=== PATIENT | female | born 1945 | race Caucasian/White ===

== ENCOUNTER → 2017-11-14 | Outpatient (CLI) | payer OTHER | LOC: HYPER 10-26 14:18 | DX: L89.893 Pressure ulcer of other site, stage 3 (principal); G60.8 Other hereditary and idiopathic neuropathies; I10 Essential (primary) hypertension; M19.90 Unspecified osteoarthritis, unspecified site; Z98.49 Cataract extraction status, unspecified eye; Z87.891 Personal history of nicotine dependence; Z72.89 Other problems related to lifestyle ==

== ENCOUNTER → 2017-12-05 | Outpatient (CLI) | payer OTHER | LOC: HYPER 06:40 | DX: L89.893 Pressure ulcer of other site, stage 3 (principal); I10 Essential (primary) hypertension; G60.8 Other hereditary and idiopathic neuropathies; M19.90 Unspecified osteoarthritis, unspecified site; Z87.891 Personal history of nicotine dependence; Z72.89 Other problems related to lifestyle ==

== ENCOUNTER → 2018-01-02 | Outpatient (CLI) | payer OTHER | LOC: HYPER 12-26 06:58 | DX: L89.893 Pressure ulcer of other site, stage 3 (principal); I10 Essential (primary) hypertension; M19.90 Unspecified osteoarthritis, unspecified site; G60.8 Other hereditary and idiopathic neuropathies; Z87.891 Personal history of nicotine dependence; Z72.89 Other problems related to lifestyle; L84 Corns and callosities ==

== ENCOUNTER → 2018-01-23 | Outpatient (CLI) | payer OTHER | LOC: HYPER 06:59 | DX: L89.893 Pressure ulcer of other site, stage 3 (principal); I10 Essential (primary) hypertension; L84 Corns and callosities; G60.8 Other hereditary and idiopathic neuropathies; M19.90 Unspecified osteoarthritis, unspecified site; Z87.891 Personal history of nicotine dependence ==

== ENCOUNTER → 2018-03-13 | Outpatient (CLI) | payer OTHER | LOC: HYPER 07:00 | DX: S91.301D Unspecified open wound, right foot, subsequent encounter (principal); L89.893 Pressure ulcer of other site, stage 3; I10 Essential (primary) hypertension; G60.8 Other hereditary and idiopathic neuropathies; M19.90 Unspecified osteoarthritis, unspecified site; Z87.891 Personal history of nicotine dependence; X58.XXXD Exposure to other specified factors, subsequent encounter ==

== ENCOUNTER → 2021-03-18 | Outpatient (CLI) | payer OTHER | LOC: HYPER 08:12 | PROVIDERS: ATTEND Emergency Medicine | DX: L97.522 Non-pressure chronic ulcer of other part of left foot with fat layer exposed (principal); L02.416 Cutaneous abscess of left lower limb; G60.8 Other hereditary and idiopathic neuropathies; E78.5 Hyperlipidemia, unspecified; I10 Essential (primary) hypertension; Q05.9 Spina bifida, unspecified; M86.8X8 Other osteomyelitis, other site; M19.90 Unspecified osteoarthritis, unspecified site; M14.672 Charcot's joint, left ankle and foot; Z89.421 Acquired absence of other right toe(s); Z87.891 Personal history of nicotine dependence ==

== ENCOUNTER → 2021-03-31 | Outpatient (CLI) | payer OTHER | LOC: SJCVCIMAG 06:43 | PROVIDERS: ATTEND Emergency Medicine | DX: I70.202 Unspecified atherosclerosis of native arteries of extremities, left leg (principal); M79.661 Pain in right lower leg; M79.662 Pain in left lower leg ==

== ENCOUNTER → 2021-04-01 | Outpatient (CLI) | payer OTHER | LOC: HYPER 09:22 | PROVIDERS: ATTEND Emergency Medicine | DX: L97.522 Non-pressure chronic ulcer of other part of left foot with fat layer exposed (principal); L02.416 Cutaneous abscess of left lower limb; L84 Corns and callosities; G60.8 Other hereditary and idiopathic neuropathies; E78.5 Hyperlipidemia, unspecified; I10 Essential (primary) hypertension; Q05.9 Spina bifida, unspecified; M86.8X8 Other osteomyelitis, other site; M19.90 Unspecified osteoarthritis, unspecified site; M14.672 Charcot's joint, left ankle and foot; Z89.421 Acquired absence of other right toe(s); Z87.891 Personal history of nicotine dependence; Z98.49 Cataract extraction status, unspecified eye; Z93.3 Colostomy status; Z96.643 Presence of artificial hip joint, bilateral ==

== ENCOUNTER → 2021-04-15 | Outpatient (CLI) | payer OTHER | LOC: HYPER 09:54 | PROVIDERS: ATTEND Emergency Medicine Emergency Medical Services | DX: L97.526 Non-pressure chronic ulcer of other part of left foot with bone involvement without evidence of necrosis (principal); L02.416 Cutaneous abscess of left lower limb; L84 Corns and callosities; G60.8 Other hereditary and idiopathic neuropathies; E78.5 Hyperlipidemia, unspecified; I10 Essential (primary) hypertension; Q05.9 Spina bifida, unspecified; M86.8X8 Other osteomyelitis, other site; M19.90 Unspecified osteoarthritis, unspecified site; M14.672 Charcot's joint, left ankle and foot; Z89.421 Acquired absence of other right toe(s); Z87.891 Personal history of nicotine dependence; Z98.49 Cataract extraction status, unspecified eye; Z93.3 Colostomy status; Z96.643 Presence of artificial hip joint, bilateral ==

== ENCOUNTER → 2021-04-29 | Outpatient (CLI) | payer OTHER | LOC: HYPER 08:47 | PROVIDERS: ATTEND Emergency Medicine | DX: L97.526 Non-pressure chronic ulcer of other part of left foot with bone involvement without evidence of necrosis (principal); L02.416 Cutaneous abscess of left lower limb; L84 Corns and callosities; G60.8 Other hereditary and idiopathic neuropathies; E78.5 Hyperlipidemia, unspecified; I10 Essential (primary) hypertension; Q05.9 Spina bifida, unspecified; M86.8X8 Other osteomyelitis, other site; M19.90 Unspecified osteoarthritis, unspecified site; M14.672 Charcot's joint, left ankle and foot; Z89.421 Acquired absence of other right toe(s); Z87.891 Personal history of nicotine dependence; Z98.49 Cataract extraction status, unspecified eye; Z93.3 Colostomy status; Z96.643 Presence of artificial hip joint, bilateral ==

== ENCOUNTER 2021-05-15 13:04 | Inpatient (IN) | payer OTHER ==
[~2021-05-15] VITALS: Ht 147.3 cm; Wt 49.0 kg
[2021-05-15 13:08] VITALS: BP 143/77
[2021-05-15 14:18] LABS: HEMATOCRIT 29.1 % (37.0-47.0); HEMOGLOBIN 10.1 gm/dL (12.0-15.0); MCH 31.6 pg (26.0-34.0); MCHC 34.9 g/dL (28.0-37.0); MCV 90.4 fL (80.0-100.0); RBC 3.21 mil/uL (4.20-5.00); WBC 9.1 thou/uL (4.0-11.0)
[2021-05-15 14:27] LABS: CALCIUM 9.5 mg/dL (8.5-10.1); CREATININE 1.1 mg/dL (0.6-1.0); POTASSIUM 3.5 mmol/L (3.5-5.1)
[2021-05-15 14:33] LABS: ALBUMIN 2.8 g/dL (3.4-5.0); TOTAL BILIRUBIN 0.7 mg/dL (0.2-1.0); TOTAL PROTEIN 8.1 g/dL (6.4-8.2)
[2021-05-15] MEDS ORDERED: TRIAMTERENE/HCT1 CA1 PO (15:09)
[2021-05-15] MEDS ORDERED: NORVASC5 MG PO (15:10)
[2021-05-15] MEDS ORDERED: FENOFIBRATE160 MG PO (15:10)
[2021-05-15 16:33] VITALS: BP 144/74
[2021-05-15 16:48] VITALS: BP 156/75
--- NOTE | 2021-05-15 18:25 | NUR ---
ASSUMED CARE OF PT AT 1715 THIS AFTERNOON FROM ER. PT IS A/OX4, SEVERE PAIN IN HE LEF FOOT HICH HAD SUGERY PEFORMD IN FEBRUARY AND HAS NO HEALED. PT WAS DX WITH OSTEOMALYTIS AND WAS XFERRED FOR WOUND CARE [place].
[2021-05-15 20:05] VITALS: BP 145/93
[2021-05-16 03:50] VITALS: BP 132/74
--- NOTE | 2021-05-16 05:33 | NUR ---
PT LYING IN BED. LORTAB PROVIDING PAIN RELIEF. PURE WICK IN PLACE. RESTING COMFORTABLY. NO NEEDS VOICED. CALL LIGHT WITHIN REACH. FREQUENT OBSERVATION.
[2021-05-16 05:42] LABS: HEMOGLOBIN 8.9 gm/dL (12.0-15.0); MCH 31.3 pg (26.0-34.0); MCHC 34.4 g/dL (28.0-37.0); MCV 90.9 fL (80.0-100.0); RBC 2.86 mil/uL (4.20-5.00); WBC 6.2 thou/uL (4.0-11.0)
[2021-05-16 05:54] LABS: CALCIUM 9.3 mg/dL (8.5-10.1); CREATININE 1.2 mg/dL (0.6-1.0); POTASSIUM 3.3 mmol/L (3.5-5.1)
[2021-05-16 08:43] VITALS: BP 138/81
--- NOTE | 2021-05-16 09:43 | HC ---
[facility] [place] [address] CONSULTATION Name: RUIZ SILVA Room #: 439- ADM IN M.R.#: [id number] Admission: 05/15/21 Attend Phys: Dixon Orellana MD Discharge: Date of : 43 Report #: [id number] THIS REPORT FOR: cc: Haley Kumar,Monster Parada MD ~ DATE OF SERVICE: 05/16/2021 INFECTIOUS DISEASE CONSULTATION ATTENDING PHYSICIAN: Dr. Orellana. REASON FOR EVALUATION: Osteomyelitis, left foot. HISTORY OF PRESENT ILLNESS: Chart reviewed. The patient examined. A 75-year-old woman with known history of spina bifida actually has a left foot deformity. As a result, she has ongoing issues with pain and discomfort associated with her distal lower extremity. She notes in December or January of this year developed a bullous type lesion over the fifth metatarsal site. Ultimately that was debrided, records are not available, but she underwent a prolonged course of parenteral therapy. She believes it was two different organisms including E. coli, notes she was treated with cefepime. She has completed roughly a month ago, she developed onset of ankle type pain made it difficult to ambulate due to the severity of the nature of the symptoms, she was evaluated again. Plain films of the ankle showed diffuse osteopenia without evidence of fracture or dislocation, foot; however, did show question of osteomyelitis with bone destruction involving the proximal fifth metatarsal. CRP was markedly elevated at 328.3. Sed rate of 121. Blood cultures collected at the time of sterile thus far not clear that she has had significant fevers. She has had some diminished appetite and p.o. intake. No pulmonary or gastrointestinal related complaints. ALLERGIES: LISTED TO MORPHINE, TRAMADOL, DILAUDID. PAST MEDICAL HISTORY: Includes spina bifida, hypertension. SOCIAL HISTORY: Former smoker. Regular ethanol use. No illicit drug use. FAMILY HISTORY: Noncontributory. REVIEW OF SYSTEMS: Otherwise, unremarkable. PHYSICAL EXAMINATION: GENERAL: Alert, cooperative, appropriate. She is lucid, somewhat chronically ill appearing and undernourished, mild to moderate distress. VITAL SIGNS: Temperature max 100.6, more recently 99.3, pulse 81, respirations [address] [address] CONSULTATION Name: RUIZ SILVA Room #: 9[facility] IN .R.#: [id number] Admission: 05/15/21 Attend Phys: Dixon Orellana MD Discharge: Date of : 43 Report #: [id number], blood pressure 132/74. SKIN: Warm, dry, no rashes. HEENT: Normocephalic. Extraocular muscles intact. NECK: Supple. LUNGS: Diminished. HEART: Somewhat tachycardic, irregular. ABDOMEN: Soft, nontender. EXTREMITIES: Left lower extremity dressing in place. There is some inversion of the ankle and is quite exquisitely tender. There is not a significant amount of surface inflammation noted over the fifth metatarsal. There is a dressing in place. GENITOURINARY AND RECTAL: Deferred. LABORATORY DATA: Blood cultures sterile thus far. Electrolytes: Sodium 136, potassium 3.3, chloride 100, bicarbonate is 26, anion gap of 10, BUN and creatinine 20 and 1.2. Estimated GFR of 44. CBC: White count 6.2, H and H 8.9 and 26.0, platelets of 255. Sed rate of 121. Lactic acid 1.1. CRP of 328.3. Liver functions otherwise unremarkable. Albumin 2.8, total protein of 8.1. ASSESSMENT AND PLAN: Left distal lower extremity inflammatory process, localizing of her signs and symptoms appear to be the ankle as opposed to the foot, although the x-ray changes are noted. She has had previous surgery there and apparently treatments as recently as a month ago and was told that there is no evidence of osteomyelitis, probably not unreasonable to repeat imaging studies. We will check to exclude other possibilities such as more specifically arthritis, gout. We will continue empiric therapy in combination with cefepime and vancomycin. Await further recommendations. Continue wound care as prescribed. <ELECTRONICALLY SIGNED> By: Monster Upton MD 05/16/21 0943 [id number] 0801 Monster Upton MD /nt
--- NOTE | 2021-05-16 14:42 | NUR ---
ASSUMED PT CARE THIS AM. PT IS ALERT & ORIENTED X4. PT HAS IV SITE ON L FA. PT IS ON ROOM AIR. PT C/O OF PAIN BUT REFUSED TO TAKE HYDROCODONE. OFFERED FENTANYL AND TYLENOL BUT PT STATED THAT WILL PROBABLY TAKE IT LATER TONIGHT. INFORMED DR ABOUT HOME MEDICATION. GIVEN HOME MEDICATION THIS AM PER PT REQUEST AND DR ORDERED. PT USES BEDPAN. NO C/O OF NAUSEA AND VOMITING DURING THE SHIFT. PT TOLERATED DIET WELL. PT ON THE BED SLEEPING, BED ON THE LOWEST POSITION, SIDE RAILS UP, CALL LIGHT WITHIN REACH. WILL CONTINUE TO MONITOR PT. FOLLOW POC.
[2021-05-16 17:08] VITALS: BP 152/81
[2021-05-16 19:00] VITALS: BP 150/75
--- NOTE | 2021-05-17 05:33 | NUR ---
PT LYING IN BED. VOIDING PER BEDPAN. DC'D HYDROCODONE AND OBTAINED ORDER FOR IBUPROFEN FOR PAIN CONTROL. WILL MONITOR. RESTING COMFORTABLY. NO NEEDS VOICED. CALL LIGHT WITHIN REACH. FREQUENT OBSERVATION.
[2021-05-17 05:44] VITALS: BP 136/79
--- NOTE | 2021-05-17 07:49 | EKG ---
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 05/17/21 0749 1530 1530 Ross Foster MD, FACC /EPI
[2021-05-17 08:24] VITALS: BP 133/78
--- NOTE | 2021-05-17 11:14 | NUR ---
Received awake on bed. Due medications given as prescribed. Able to swallow meds w/o difficulty. On room air. Vital signs stable. On MS, not on telemetry, no complains and signs of chest pain, crushing sensation and heaviness. Assisted in ADLs. On regular diet- tolerating well; no nausea, no vomiting and no abdominal pain noted. Continent of bowel and bladder, using bedpan for now due to pain on her foot. With SL at L FA. With wound at L foot- dressing C/D/I. Steristrip at R forehead. Ongoing PT/OT evaluation. Complained of pain, due PRN pain meds given as prescribed. Advised pt to keep foot elevated. To continue monitoring patient.
--- NOTE | 2021-05-17 14:59 | NUR ---
ASSESSMENT: CM REVIEWED CHART AND SPOKE WITH PATIENT AT THE BEDSIDE. PT IS ALERT AND ORIENTED X4. PT REPORTS THAT SHE LIVES IN A HOUSE ALONE. PT HAS ABOUT 2 STEPS TO ENTER THE HOME WITH A HANDRAIL. PT REPORTS ONCE INSIDE SHE HAS NO STEPS TO USE. PT STATES SHE NORMALLY USES A QUAD CANE FOR AMBULATION AND DOES HAVE A WALKER IF NEEDED. PT IS CURRENTLY IN SERVICES WITH [facility]. LIASON FROM [facility] IS AWARE AND FOLLOWING PATIENT. PT WAS ADMITTED DUE TO CONCERNS FOR OSTEO ANKLE AND FOOT AND IS CURRENTLY ON IV ANBX. PT REPORTS SHE HAS BEEN ON IV ANBX IN THE PAST AT HOME. PT REPORTS SHE HAS NO FAMILY NEAR AND NORMALLY TAKES CARE OF HER SELF INDEPENDENTLY AND HAS GROCERIES DELIVERED. CM WILL CONTINUE TO FOLLOW TO ASSIST NEEDED AND AWAIT FURTHER INPUT FROM ID. CM WILL CONTINUE TO FOLLOW.
[2021-05-17 15:20] VITALS: BP 129/84
[2021-05-17 20:40] VITALS: BP 129/78
[2021-05-18] VITALS (8 sets, daily range): BP systolic 116–155; BP diastolic 65–83
--- NOTE | 2021-05-18 00:49 | NUR ---
ASSUMED PT CARE AT 1900.PT C/O PAIN TO HER L FOOT,MANAGED WITH MED.DRSG TO HER L FOOT C/D/I.PT NPO AT THIS TIME FOR A POSSIBLE SX IN THE AM.PT UP WITH ASSIST/GB AND WALKER TO THE BSC.NO BM NOTED SO FAR.FALL PRECAUTIONS IN PLACE.CALL LIGHT WITHIN REACH.
--- NOTE | 2021-05-18 08:44 | HC ---
[facility] [place] [address] CONSULTATION Name: RUIZ SILVA Room #: 439-P ADM IN M.R.#: [id number] Admission: 05/15/21 Attend Phys: Dixon Orellana MD Discharge: Date of : 43 Report #: [id number] THIS REPORT FOR: cc: Haley Kumar Diane C. DO [place], Allen B. MD ~ DATE OF SERVICE: 05/16/2021 WOUND CARE CONSULTATION NOTE REASON FOR CONSULTATION: Chronic nonhealing wound of left foot with increased pain and redness, admitted for IV antibiotics from the emergency room. HISTORY OF PRESENT ILLNESS: The patient is a 75-year-old woman who had undergone left foot surgery by her press operator meat in February. She has been seen in followup by Dr. Danie Mendoza at healing and wound care. The patient did call the answering service for healing and wound care yesterday with increased pain, swelling and tenderness of the left foot, which she was finding intolerable. The patient presented herself to the emergency room at [facility], was admitted for IV antibiotics. She is reporting some improvement with IV antibiotics with less pain. She has been afebrile. Plain x-ray of the foot on the left has shown findings suggestive of osteomyelitis and bone destruction involving the proximal fifth metatarsal. She is currently receiving intravenous vancomycin and cefepime. PAST MEDICAL HISTORY: Spina bifida, hypertension. PAST SURGICAL HISTORY: Left foot surgery 02/2021. REVIEW OF SYSTEMS: Left foot pain. PHYSICAL EXAMINATION: GENERAL: Shows a chronically ill-appearing 75-year-old woman, alert, pleasant, conversant. Mucous membranes are moist. NECK: Supple. ABDOMEN: Soft. EXTREMITIES: Lower extremity exam shows deformity of the left foot. There is a chronic open wound of the left lateral mid foot with chronic granulation tissue present. Wound is oval, measuring approximately 3.5 x 2 cm. Drainage is minimal. No surrounding redness. Somewhat tender to touch. IMPRESSION: 1. Spina bifida with foot deformities. 2. Immobility. 3. Chronic nonhealing surgical wound of left foot. 4. Cellulitis of left foot with chronic nonhealing wound. [facility] [address] [place] [address] CONSULTATION Name: RUIZ SILVA Room #: 439-P [facility] IN [facility].#: [id number] Admission: 05/15/21 Attend Phys: Dixon Orellana MD Discharge: Date of : 43 Report #: [id number] 5. Plain x-ray of the foot, suggesting osteomyelitis of the proximal 5th metatarsal. PLAN: Border foam Kerlix dressing. Continue IV antibiotics. Consider podiatry or surgery consult. Consider MRI. Dr. Mendoza knows the patient well. Wound care team will follow. <ELECTRONICALLY SIGNED> By: Bang Solis MD 05/18/21 0844 1152 Myrna Solis MD /annie
[2021-05-18 09:39] LABS: CALCIUM 9.3 mg/dL (8.5-10.1); POTASSIUM 3.9 mmol/L (3.5-5.1)
--- NOTE | 2021-05-18 10:55 | NUR ---
Pt has poor/limited nutrient intake at home, recommend start MVI
--- NOTE | 2021-05-18 14:58 | NUR ---
ON-GOING ASSESSMENT: CM REVIEWED CHART AND SPOKE WITH ATTENDING. PT IS HAVING DEBRIDEMENT TODAY. PT WILL NEED PROLONGED IX NABX THERAPY AND NEED PICC PLACED PRIOR TO DISCHARGE. AWAITING FINAL RECS FOR ANBX CULTURES WILL BE OBTAINED TODAY. CM ATTEMPTED TO MEET WITH PATIENT AT THE BEDSIDE TO FIND PREFERENCE OF INFUSION COMPANY BUT SHE IS CURRENTLY OUT OF THE ROOM FOR PROCEDURE. CM WILL CONTINUE TO FOLLOW. PT DID DISCUSS POSSIBILITY OF HOME INFUSION YESTERDAY EVENING WITH PATIENT AND SHE REPORTS HAVING IT IN THE PAST AND FEELS SHE WOULD BE ABLE TO DO IT HERSELF AGAIN AT THE TIME OF DISCHARGE. CATRINA ARITA CONTINUES TO FOLLOW PT AND AWARE OF LIKELY NEED FOR IV ANBX AT DISCHARGE. CM WILL CONTINUE TO FOLLOW.
--- NOTE | 2021-05-18 16:02 | NUR ---
Assessed pt at 7:00 am. Alert and orient x4. Pt is npo for surgery this afternoon. IV in left FA. Gets up with assist to bedside commode. Having debridement of left heel wound and bone deduction. VSS went down to surgery at 1400. 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 Fall precautions in place. Call light within reach.
[2021-05-18 16:06] LABS: GLOBULIN TOTAL 3.6 g/dL (2.2-3.9); M-SPIKE Not Observed g/dL (Not Observed)
--- NOTE | 2021-05-19 01:54 | NUR ---
ASSUMED T CARE AT 1900.PT C/O PAIN TO HER L FOOT,MANAGED WITH MED.DRSG TO HER L FOOT C/D/I.PT SITKA.NEIGHBOR BROUGHT BATTERIES TO HER HEARING AID,GAVE IT TO PT.PT ABLE TO MAKE HER NEEDS KNOWN.CALL LIGHT WITHIN REACH.
[2021-05-19 04:54] VITALS: BP 151/70
[2021-05-19 08:59] VITALS: BP 139/85
--- NOTE | 2021-05-19 14:12 | NUR ---
on-going assessment: CM REVIEWED CHART AND SPOKE WITH ATTENDING. CM SPOKE WITH PHYSICAL THERAPY WHO REPORTS THEY ARE NOW RECOMMENDING SNF FOR PATIENT SHE IS NWB LLE AND WILL HAVE A HARD TIME MANAGING THIS AT HOME WITH NO ASSISTANCE. CM MET WITH PATIENT THIS AM TO DISCUSS AND SHE IS RELUCTANT DUE TO HAVING PETS AT HOME BUT REPORTS SHE WILL ATTEMPT TO MAKE ARRANGEMENTS FOR HER BIRDS WITH HER VET, HER NEIGHBORS CAN FEED HER CATS AND THEY CAN TAKE CARE OF THEMSELVES, BUT SHE WILL NEED ASSISTANCE WITH HER DOG OR SHE WILL NOT AGREE TO GO. CM REACHED OUT TO JOSÉ ANTONIO SANDOVAL AT [employer] THEY HAVE AN EMERGENT FOSTERING PROGRAM FOR PATIENTS IN HOSPITAL/SNF SETTINGS. JAIME STATING THEY ARE PRETTY FULL RIGHT NOW BUT WILL HAVE PATIENT APPLY AND SEE IF THEY CAN WORK IT IN. CM WILL ATTEMPT TO GET PATIENT TO APPLY ONLINE THIS IS THE ONLY WAY THE APPLICATION CAN BE SUBMITTED. CM DISCUSSED SNF OPTIONS WITH PATIENT AND SHE REPORTS BEING TO [facility] IN THE PAST AND DOES NOT WANT TO RETURN. PT REPORTS SHE WOULD BE INTERSTED IN SEEING IF [facility] CAN ACCEPT SAME WOUND CARE TEAM GOES THERE. CM FAXED REFERRAL AND NOTIFIED [facility] IN ADMISSIONS.
--- NOTE | 2021-05-19 15:10 | NUR ---
Received awake on bed. Due medications given as prescribed, able to swallow meds w/o difficulty. On room air. Vital signs stable. On MS, not on telemetry; no complains and signs of chest pain, crushing sensation and heaviness. Assisted in ADLs. Continent of bowel and bladder, using bedpan at times due to non wt bearing status. With SL at L FA- on IV antibiotics. S/P I&D of L foot 05/18, dressing C/D/I. Pt informed and aware re: non wt bearing status. Falls bundle in place. Able to turn self in bed. Complained of pain, due PRN pain meds given as prescribed- Dr Orellana informed that pt requesting to have low dose gabapentin and PO pain meds- a/w orders. Pt seen and examined by wound team today- dressing changed. Seen and examined by ortho- ok to d/c from their standpoint; a/w PT/OT recommendations re: placement- CM aware. Pt complaining of sore throat- Dr Orellana informed- a/w prescription order. To continue monitoring patient.
[2021-05-19 16:20] VITALS: BP 128/66
[2021-05-19 19:12] VITALS: BP 150/81
--- NOTE | 2021-05-20 03:10 | NUR ---
ASSUMED CARE OF PT AT 1900. PT IS A/O X4 WITH SOME FORGETFULLNESS. VSS AFEBRILE. C/O NEEDING NERVE PAIN MEDICATION AND HAS STATED THAT SHE IS GOING TO TALK TO THE PHYSCIAN AGAIN ABOUT THIS IN THE AM. C/O PAIN TO LEFT FOOT. PRN PAIN MEDICATION GIVEN DIRECTED. DRSG TO LEFT FOOT IS C/D/I. PT IS PLEASANT AND COOPERATIVE WITH CARES. VOIDS PER BEDPAN. NO BM THIS SHIFT. MEDICATIONS GIVEN PER MAR WHOLE WITH WATER. LEFT FOOT ELEVATED AND HEEL FLOATING. FALL PRECAUTIONS IN PLACE, CALL LIGHT IS WITHIN REACH. WILL CONTINUE TO MONITOR.
[2021-05-20 04:46] VITALS: BP 127/69
[2021-05-20 07:43] VITALS: BP 142/66
--- NOTE | 2021-05-20 09:25 | NUR ---
on-going assessment: CM REVIEWED CHART AND SPOKE WITH ATTENDING. ID IS CONTINUING TO FOLLOW AND AWAITING FINAL RECS AT THIS TIME. PT IS TO HAVE PICC LINE PLACED TODAY. PPT MET WITH LIASON FROM [facility] YESTERDAY BUT REPORTS SHE WANTS TO MEET WITH THE LIASON FROM [facility] BEFORE MAKING A FINAL DECISION. CM NOTIFIED PT THAT ONCE DECISION IS MADE THE FACILITY NEEDS TO SUBMIT FOR AUTH. PT STATES SHE UNDERSTANDS. CM SPOKE WITH LIASON FROM [facility] WHO REPORTS SHE CAN COME MEET WITH PT CM REQUESTED SALVADOR AND SHE REPORTS SHE CAN BE HERE AFTER 1200. CM UPDATED PATIENT. 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 CM WILL AWAIT TO SPEAK WITH PT AFTER MEETING WITH LIASON FROM [facility].
--- NOTE | 2021-05-20 13:11 | NUR ---
A #4F SINGLE LUMEN POWER PICC WAS PLACED PER HOSPITAL POLICY. THE LINE WAS TRIMMED TO 39CM AND ADVANCED WITHTOUT DICCICULTY. THE LINE WAS CONFIRMED WITH 3CG AT 2CM EXTERNAL. THE LINE WAS SECURED AND RELEASED FOR USE
--- NOTE | 2021-05-20 15:16 | NUR ---
ON-GOING ASSESSMENT: CM REVIEWED CHART AND MET WITH PATIENT AGAIN THIS AFTERNOON. PT REPORTS AFTER TALKING WITH LI[facility]ON FROM [facility] PT WANTS TO PURSUE WITH GOING TO [facility]. CM NOTIFIED [facility] TO PLEASE SUBMIT FOR INSURANCE AUTH. PT HAD PICC LINE PLACED TODAY. 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 AWAITING FINAL RECS ON ANBX. CM FAXED UPDATED CLINICAL TO [facility].
[2021-05-20 16:23] VITALS: BP 116/65
--- NOTE | 2021-05-20 18:00 | NUR ---
PT ASSESSED AT START OF SHIFT. STAYING ON BEDREST AFTER FOOT SURGERY. SURGICAL DSNG INTACT W/ LATRICE WRAP. DR. ZAMORANO IN THIS AFTERNOON AND LEFT DSNG IN PLACE. PICC LINE PLACED PER IV TEAM. PT TO DISCHARGE TOMORROW TO [facility]. PAIN WELL MANAGED W/ PERCOCET.
--- NOTE | 2021-05-20 18:07 | PATH ---
[facility] [address] [place] [address] PATHOLOGY RPT PROCEDURE Name: HENNA ECHOLS Room #: 439-P ADM IN M.R.#: [id number] Admission: 05/15/21 Date of : 43 Discharge: Report #: [id number] Path Case #: [id number] [facility] Accession Number: [id number] . 01 Material submitted: . foot - 5TH METATARSAL LEFT FOOT. Modifiers: left, fifth . 01 Clinical history: . INCISION AND DRAINAGE EXTREMITH WITH L FOOT OSTEOMYELITIS . 02 Diagnosis: Bone, foot, fifth metatarsal left foot, incision and drainage: - Reactive bone associated with marked acute inflammation, consistent with acute osteomyelitis. . (IUV:mml; 05/20/2021) QLM 05/20/2021 1550 Local . 02 Electronically signed: . Kelle Metz MD, Pathologist NPI- [id number] . 01 Gross description: . The specimen is received in formalin, labeled "Henna Echols and fifth metatarsal left foot". It consists of a shepard irregular bone and soft tissue resection measuring 3.8 x 1.7 x 1.5 cm. Sectioning reveals shepard-yellow spongy bone. A outbound call center representative section is submitted in A1 following decalcification. (MRF; 05/19/2021) MFE/MFE 05/19/2021 1945 Local . 02 Pathologist provided ICD-10: M86.172 . 02 CPT . 129924, 268983 Specimen Comment: A courtesy copy of this report has been sent to [phone], [phone] Specimen Comment: [phone], Specimen Comment: Report sent to ,DR GARCIA / DR NGUYEN Performed at: [address] [id number] MD Joe Cadena MD Phone: [phone] Performed at: 02 [facility] [address] [place] [address] PATHOLOGY RPT PROCEDURE Name: HENNA ECHOLS Room #: 439-P ADM IN M.R.#: [id number] Admission: 05/15/21 Date of : 43 Discharge: Report #: [id number] Path Case #: [id number] [address] [place] [address] [place] [id number] MD Kelle Metz MD Phone: [phone]
[2021-05-20 19:42] VITALS: BP 151/83
--- NOTE | 2021-05-21 02:44 | NUR ---
PT CARE ASSUMED WITH PT IN BED WATCHING TV.PT IS A/O X4.PT IS ON BEDREST AND USES BEDPAN.PT WOUND ON LT FOOT STILL WITH THE SURGICAL DRESSING C/D/I .IV ACCESS LT PICC SL.WOUND ON FOREHEAD WITH DRESSING AND SUTURES C.D.I.PT C/O PAIN AND PAIN MANAGED WITH PERCOCET.WILL CONTINUE TO MONITOR
[2021-05-21 07:30] VITALS: BP 143/66
[2021-05-21] MEDS ORDERED: VITAMIN D325 MC1 PO (13:17)
[2021-05-21] MEDS ORDERED: LOPRESSOR50 PO (13:17)
[2021-05-21] MEDS ORDERED: OXYCODONE HCL 55 MG PO (13:17)
--- NOTE | 2021-05-21 13:19 | NUR ---
ON-GOING ASSESSMENT: CM FAXED UPDATED CLINICAL TO [facility] AND UPDATED JOSÉ ANTONIO NEAL. HERB SPOKE WITH [facility] IN ADMISSIONS WHO REPORTS THEY HAVE INSURANCE AUTH TO ACCEPT PATIENT TODAY. HERB NOTIFIED PT WHO IS AGREEABLE WITH PLAN AND REPORTS SHE HAS FOUND PLACES FOR ALL OF HER BEST WHILE AT SNF. AWAITING DISCHARGE ORDERS AT THIS TIME.
[2021-05-21] MEDS ORDERED: VAN500AD IV (13:37)
--- NOTE | 2021-05-21 14:10 | NUR ---
on-going assessment: CM REVIEWED CHART AND SPOKE WITH PATIENT. CM SPOKE WITH JOSÉ ANTONIO NEAL FROM [facility] THAT THEY RECEIVED INSURANCE AUTH TO ACCEPT PT TO SNF TODAY. CM NOTIFIED ATTENDING WELL PATIENT AND BEDSIDE RN. CHART COPY WAS ORDERED. CM FAXED DISCHARGE PAPERWORK TO THE FACILITY AND CONFIRMED THEY RECEIVED IT. CM VERIFIED THEY CAN ACCEPT HER ON IV VANC AND PICC ALREADY PLACED. BEDSIDE RN HAS THE NUMBER FOR REPORT. PT REPORTS SHE HAS NOTIFIED HER BROTHER.TRANSPORTATION HAS BEEN ARRANGED FOR [phone]. PT REPORTS NO FURTHER NEEDS FROM CM PRIOR TO DISCHARGE.
[2021-05-21 15:43] VITALS: BP 121/63
--- NOTE | 2021-05-21 17:29 | NUR ---
ASSESSMENT CHARTED. PT ALERT AND ORIENTED. VSS. PRN PAIN MED GIVEN WITH PARTIAL RELIEF. WOUND CARE PROVIDED. SEEN BY DR. JONES. ORDERS GIVEN TO DISCHARGE PT TO SNF. PT NOTIFIED AND FAMILY NOTIFIED.
--- NOTE | 2021-05-25 11:03 | O ---
[facility] [place] [address] OPERATIVE REPORT Name: RUIZ SILVA Room #: 439-P [facility] M.R.#: [id number] Admission: 05/15/21 Attend Phys: Dixon Orellana MD Discharge: 05/21/21 Date of : 43 Report #: [id number] THIS REPORT FOR: cc: Haley Kumar Diane C. DO McCabe, Michael P. MD ~ DATE OF SERVICE: 05/18/2021 SERVICE: Orthopedics. FACILITY: [facility]. SURGEON: Killian Jiang MD SANITATION TECHNICIAN: Bessie Samano NP PREOPERATIVE DIAGNOSES: 1. Left nonhealing foot wound. 2. Left foot fifth metatarsal base osteomyelitis. 3. Cerebral palsy. 4. Pathologic fracture, left fifth metatarsal base. PREOPERATIVE DIAGNOSES: 1. Left nonhealing foot wound. 2. Left foot fifth metatarsal base osteomyelitis. 3. Cerebral palsy. 4. Pathologic fracture, left fifth metatarsal base. PROCEDURE: Irrigation and debridement down to bone with resection of fifth metatarsal base, left foot. COMPLICATIONS: None. DRAINS: None. SPECIMENS: 1. Fifth metatarsal base bone for culture (aerobic, anaerobic, fungal, AFB). 2. Left foot metatarsal for permanent. HISTORY: The patient is a 75-year-old female with a history of a left lateral foot wound since February that had been treated with active irrigation, debridement, wound care, antibiotics and she continued to have worsening pain. She had developed a pathologic fracture of the fifth metatarsal base. She presented to the emergency room at [facility] past weekend and x-rays confirmed the presence of osteomyelitis. She was indicated surgical treatment. Risks, benefits, alternatives and indications for surgery discussed with her in detail. [facility] [address] [place] [address] OPERATIVE REPORT Name: RUIZ SILVA Room #: 439-P [facility] .R.#: [id number] Admission: 05/15/21 Attend Phys: Dixon Orellana MD Discharge: 05/21/21 Date of : 43 Report #: [id number] Risks include but not limited to pain, bleeding, infection, persistence, need for further surgery as well as complications related to anesthesia. Despite the risks, she wished to proceed. PROCEDURE IN DETAIL: After left lower extremity was correctly identified in the preoperative holding area, the operative extremity, the patient was taken to the operating room where general anesthesia was induced without complications. She was padded appropriately. Prophylactic antibiotics were not administered as she is on antibiotic and the patient is on regimen currently. Tourniquet was applied to left leg. Left lower extremity was then prepped and draped in standard sterile fashion. Timeout procedure performed. Leg was elevated and tourniquet inflated to 250 mmHg. There was a chronic wound with beefy granulation tissue over the plantar lateral aspect of the base of the fifth metatarsal. This was oval in orientation and extended from lateral to medial towards the plantar surface with the apices dorsal and plantar in a transverse orientation. There was some hypertrophic tissue around this and I utilized the orientation the best capacity to and then extended the wound with sharp incision distally and proximally and then excised the ulcer sharply. The granulation tissue was removed. Hemostasis was achieved during the exposure. The dissection was taken down and resection of all tissue down to bone was performed and the fifth metatarsal base was dissected free and I isolated. A bone cutting forceps was then used to transect the fifth metatarsal just distal to the fourth and fifth metatarsal joint. This was confirmed on x-ray to be distal to the pathologic bone at the fifth metatarsal base. This osteomyelitic bone was then removed in one unit. There was some fragmentation more proximally. This was resected with the shaver and then the pseudocapsule rind in this area was removed as well. There was no leonel purulence noted. The wound was copiously irrigated. I then resected the articular cartilage of the cuboid and the fourth metatarsal base in order to allow a fresh bony surface for healing process to occur. The wound was then thoroughly irrigated a final debridement was then completed and then we irrigated once more. We let the tourniquet down. Pressure was applied and hemostasis was achieved with electrocautery. The deep layer was closed with #1 PDS suture over the bone and then the skin was closed with 2-0 PDS followed by 3-0 nylon suture. Sterile dressing was applied. The patient was awakened from anesthesia and taken to recovery room in stable condition. <ELECTRONICALLY SIGNED> By: Killian Jiang MD 05/25/21 1103 [id number] [id number] Killian Jiang MD /nt
== END 2021-05-21 17:34 | DRG 504 ==
LOC: ER 13:04 → 4S 16:16 → EROBS 16:16 → 4S 16:48
PROVIDERS: Nurse Practitioner Family; Orthopaedic Surgery Sports Medicine; Specialist; ADMIT Hospitalist; ATTEND Hospitalist
PROC: 0QBP0ZZ Excision of Left Metatarsal, Open Approach (ICD-10-PCS; principal; 2021-05-18)
PROC: 05HY33Z Insertion of Infusion Device into Upper Vein, Percutaneous Approach (ICD-10-PCS; 2021-05-20)
DX: M86.172 Other acute osteomyelitis, left ankle and foot (principal); L03.116 Cellulitis of left lower limb; M84.475A Pathological fracture, left foot, initial encounter for fracture; L97.329 Non-pressure chronic ulcer of left ankle with unspecified severity; E44.0 Moderate protein-calorie malnutrition; S91.302A Unspecified open wound, left foot, initial encounter; G80.9 Cerebral palsy, unspecified; Z60.2 Problems related to living alone; R53.81 Other malaise; R63.4 Abnormal weight loss; N18.30 Chronic kidney disease, stage 3 unspecified; D64.9 Anemia, unspecified; I12.9 Hypertensive chronic kidney disease with stage 1 through stage 4 chronic kidney disease, or unspecified chronic kidney disease; G62.9 Polyneuropathy, unspecified; E55.9 Vitamin D deficiency, unspecified; B95.62 Methicillin resistant Staphylococcus aureus infection as the cause of diseases classified elsewhere; Z88.6 Allergy status to analgesic agent; Z88.8 Allergy status to other drugs, medicaments and biological substances; Q05.9 Spina bifida, unspecified; X58.XXXA Exposure to other specified factors, initial encounter; Y93.89 Activity, other specified; Y92.89 Other specified places as the place of occurrence of the external cause; Y99.8 Other external cause status; Z68.22 Body mass index [BMI] 22.0-22.9, adult; Z79.899 Other long term (current) drug therapy
CPT/HCPCS: 10195; 27000; 50010; 50101; 50386; 56525; 56527; 57091; 57179; 62110; 62900; 70005